=== PATIENT | female | born 1975 | race Caucasian/White ===

== ENCOUNTER 2022-09-23 18:10 | Inpatient (IN) | payer SELFPAY ==
[~2022-09-23] VITALS: Ht 152 cm; Wt 48.8 kg
[2022-09-23] MEDS ORDERED: NS 100 ML (IVPB) BAG IV ONE (19:15)
[2022-09-23] MEDS ORDERED: HOLD METFORMIN - RECEIVED CONTRAST 20 ML VIAL IV SCH (19:15)
[2022-09-23] MEDS ORDERED: IOHEXOL 350 MG/ML 100 ML (OMNIPAQUE 350) VIAL IV ONE (19:15)
--- NOTE | 2022-09-23 19:26 | ED Cough/URI ---
General Chief Complaint: COVID19 Suspect/Confirmed Stated Complaint: FEVER Nursing Triage Note: PT TO [facility], BOYFRIEND IS SHORE MAN FOR PT, STATES BODY ACHES AND WAS SENT HERE FROM [facility], THINKS SHE HAS COVID BUT NOT SURE, WAS SENT WITH AN EKG THAT WAS DONE THERE. SS STARTED YESTERDAY. STATES THEY DID NOT GIVE HER ANY MEDICATION, TEMP 36.9 AT TRIAGE Source: patient Exam Limitations: no limitations History of Present Illness Date Seen by Provider: Sep 23, 2022 Time Seen by Provider: 19:25 Initial Comments This is a 47-year-old female who presented to the ER with complaints of generalized body aches, lower abdominal pain that radiates into her back. States that her symptoms started yesterday, she has not taken anything for pain at this time. She went to [facility] and was tested for COVID and influenza, Her boyfriend believes that her COVID test was positive but he is unsure. She reports no diagnosed medical problems, however does note that she does not go to the doctor. She is complaining of chills, generalized body aches, shortness of breath, lower abdominal pain that radiates into her back. Does not take any home medications or [id number] medications. No recent travel. Denies alcohol, tobacco, illicit drug use. Allergies and Home Medications Allergies Coded Allergies: No Known Drug Allergies (Unverified , 09/23/22) Patient Home Medication List Home Medication List Reviewed: Yes Past Liixwcd-Ksyxgz-Oxtwyu Hx Patient Social History Tobacco Use?: No Substance use?: No Alcohol Use?: No Immunizations Up To Date Second COVID19 Vaccination Hany: YES Past Medical History Surgery/Hospitalization HX: C SECTION Physical Exam Vital Signs - First Documented 09/23/22 09/23/22 18:36 21:07 Temp 36.9 Pulse 111 Resp 18 B/P (MAP) 101/64 (76) Pulse Ox 94 O2 Delivery Room Air O2 Flow Rate 10.00 Capillary Refill : Less Than 3 Seconds Height: '" Weight: lbs. oz. kg; 23.00 BMI Method: General Appearance: mild distress Eyes: Bilateral Eye Normal Inspection, Bilateral Eye PERRL, Bilateral Eye EOMI HEENT: other (smooth glossy tongue ) Neck: full range of motion, supple Respiratory: chest non-tender, no respiratory distress; No no accessory muscle use (increased effort ); other (Coarse throughout, crackles bilateral bases, worse on right ) Cardiovascular: regular rate, rhythm, no edema, no murmur Gastrointestinal: normal bowel sounds, soft, tenderness (generalized lower abdominal pain ) Extremities: normal range of motion, normal inspection Neurologic/Psychiatric: no motor/sensory deficits, alert, normal mood/affect, oriented x 3 (grossly intact ) Skin: normal color, warm/dry Focused Exam Lactate Level 09/23/22 20:05: Lactic Acid Level 1.93 Lactic Acid Level Laboratory Tests Test 09/23/22 20:05 Lactic Acid Level 1.93 MMOL/L (0.50-2.00) Progress/Results/Core Measures Suspected Sepsis SIRS Temperature: Pulse: 111 Respiratory Rate: 18 Laboratory Tests 09/23/22 19:24: White Blood Count 35.3*H Blood Pressure 101 /64 Mean: 76 09/23/22 20:05: Lactic Acid Level 1.93 Laboratory Tests 09/23/22 19:24: Creatinine 1.30, INR Comment 1.3, Platelet Count 323, Total Bilirubin 1.1H Results/Orders Lab Results Laboratory Tests Test 09/23/22 18:40 09/23/22 19:24 09/23/22 20:05 09/23/22 21:40 Range/Units Influenza Type A (RT-PCR) Not Detected Not Detecte Influenza Type B (RT-PCR) Not Detected Not Detecte SARS-CoV-2 RNA (RT-PCR) Not Detected Not Detecte White Blood Count 35.3 *H 4.3-11.0 10^3/uL Red Blood Count 4.37 3.80-5.11 10^6/uL Hemoglobin 6.6 *L 11.5-16.0 g/dL Hematocrit 26 L 35-52 % Mean Corpuscular Volume 58 L 80-99 fL Mean Corpuscular Hemoglobin 15 L 25-34 pg Mean Corpuscular Hemoglobin Concent 26 L 32-36 g/dL Red Cell Distribution Width 19.9 H 10.0-14.5 % Platelet Count 323 130-400 10^3/uL Mean Platelet Volume 9.8 9.0-12.2 fL Immature Granulocyte % (Auto) 1 % Neutrophils (%) (Auto) 91 H 42-75 % Lymphocytes (%) (Auto) 4 L 12-44 % Monocytes (%) (Auto) 4 0-12 % Eosinophils (%) (Auto) 1 0-10 % Basophils (%) (Auto) 0 0-10 % Neutrophils # (Auto) 31.9 H 1.8-7.8 10^3/uL Lymphocytes # (Auto) 1.4 1.0-4.0 10^3/uL Monocytes # (Auto) 1.4 H 0.0-1.0 10^3/uL Eosinophils # (Auto) 0.2 0.0-0.3 10^3/uL Basophils # (Auto) 0.1 0.0-0.1 10^3/uL Immature Granulocyte # (Auto) 0.3 H 0.0-0.1 10^3/uL Neutrophils % (Manual) 93 % Lymphocytes % (Manual) 2 % Monocytes % (Manual) 2 % Band Neutrophils 3 % Percent Immature Platelet Fraction 3.0 0.0-7.6 % Hypochromasia MARKED Poikilocytosis SLIGHT Microcytosis MODERATE Elliptocytes SLIGHT Erythrocyte Sedimentation Rate 78 H 0-20 MM/HR Absolute Reticulocyte Count 52 24-90 10e9/uL Percent Reticulocyte Count 1.20 0.50-2.40 % Prothrombin Time 17.0 H 12.2-14.7 SEC INR Comment 1.3 0.8-1.4 Activated Partial Thromboplast Time 37 H 24-35 SEC D-Dimer 0.36 0.00-0.49 UG/ML Sodium Level 132 L 135-145 MMOL/L Potassium Level 3.8 3.6-5.0 MMOL/L Chloride Level 101 98-107 MMOL/L Carbon Dioxide Level 20 L 21-32 MMOL/L Anion Gap 11 5-14 MMOL/L Blood Urea Nitrogen 19 H 7-18 MG/DL Creatinine 1.30 0.60-1.30 MG/DL Estimat Glomerular Filtration Rate 51 BUN/Creatinine Ratio 15 Glucose Level 347 H 70-105 MG/DL Calcium Level 9.3 8.5-10.1 MG/DL Corrected Calcium 9.3 8.5-10.1 MG/DL Total Bilirubin 1.1 H 0.1-1.0 MG/DL Aspartate Amino Transf (AST/SGOT) 23 5-34 U/L Alanine Aminotransferase (ALT/SGPT) 23 0-55 U/L Alkaline Phosphatase 134 40-136 U/L Lactate Dehydrogenase 192 125-220 U/L Troponin I < 0.028 <0.028 NG/ML Total Protein 8.4 H 6.4-8.2 GM/DL Albumin 4.0 3.2-4.5 GM/DL Beta-Hydroxybutyrate (Chem panel) 0.41 H 0.00-0.27 MMOL/L Procalcitonin 3.70 H <0.10 NG/ML Lactic Acid Level 1.93 0.50-2.00 MMOL/L Blood Gas Puncture Site RRAD Blood Gas Patient Temperature 36.6 Arterial Blood pH 7.37 7.37-7.43 Arterial Blood Partial Pressure CO2 29 L 35-45 MMHG Arterial Blood Partial Pressure O2 48 L 79-93 MMHG Arterial Blood HCO3 16 *L 23-27 MMOL/L Arterial Blood Total CO2 16.9 L 21.0-31.0 MMOL/L Arterial Blood Oxygen Saturation 87 L 94-100 % Arterial Blood Base Excess -8.4 L -2.5-2.5 MMOL/L Ted Test YES-POS Blood Gas Ventilator Setting NO Blood Gas Inspired Oxygen RA My Orders Orders - ROSEMARIE AHN APRN Ed Iv/Invasive Line Start (09/23/22 19:07) Cbc With Automated Diff (09/23/22 19:07) Comprehensive Metabolic Panel (09/23/22 19:07) Erythrocyte Sedimentation Rate (09/23/22 19:07) Chest 1 View, Ap/Pa Only (09/23/22 19:07) Urine Bedside (09/23/22 19:07) Ct Abdomen/Pelvis W (09/23/22 19:07) Iohexol Injection (Omnipaque 350 Mg/Ml 1 (09/23/22 19:15) Received Contrast (Hold Metformin- Contr (09/23/22 19:15) Ns (Ivpb) (Sodium Chloride 0.9% Ivpb Bag (09/23/22 19:15) Ns Iv 500 Ml (Sodium Chloride 0.9%) (09/23/22 19:45) Ketorolac Injection (Toradol Injection) (09/23/22 19:45) Fentanyl Inj (Sublimaze Injection) (09/23/22 19:45) Ns Iv 500 Ml (Sodium Chloride 0.9%) (09/23/22 19:31) Blood Culture (09/23/22 19:45) Urinalysis (09/23/22 19:45) Urine Culture (09/23/22 19:45) Protime With Inr (09/23/22 19:45) Partial Thromboplastin Time (09/23/22 19:45) Ekg Tracing (09/23/22 19:45) Troponin I Jose (09/23/22 19:45) Lactic Acid Analyzer (09/23/22 19:45) Ns Iv 1000 Ml (Sodium Chloride 0.9%) (09/23/22 19:45) Cefepime Injection (Maxipime Injection) (09/23/22 19:45) Type And Screen (09/23/22 19:53) Red Cells Leukocytes Reduced (09/23/22 19:53) Hemoglobin A1c (09/23/22 20:34) Procalcitonin (Pct) (09/23/22 20:34) Fibrin Degradation Products (09/23/22 20:59) Arterial Blood Gas (09/23/22 20:59) LDH (09/23/22 21:01) Smear For Path Review (09/23/22 19:24) Ed Admission (Communication) (09/23/22 22:16) Medications Given in ED Current Medications Medications Dose Ordered Sig/Yue Route Start Time Stop Time Status Last Admin Dose Admin Cefepime HCl 1000 mg/Sodium Chloride 50 ml @ 100 mls/hr ONCE ONCE IV 09/23/22 19:45 09/23/22 20:14 DC 09/23/22 20:15 100 MLS/HR Fentanyl Citrate 50 mcg ONCE ONCE IVP 09/23/22 19:45 09/23/22 19:46 DC 09/23/22 19:40 50 MCG Iohexol 100 ml ONCE ONCE IV 09/23/22 19:15 09/23/22 19:16 DC 09/23/22 20:20 59 ML Ketorolac Tromethamine 15 mg ONCE ONCE IVP 09/23/22 19:45 09/23/22 19:46 DC 09/23/22 19:42 15 MG Sodium Chloride 100 ml ONCE ONCE IV 09/23/22 19:15 09/23/22 19:16 DC 09/23/22 20:20 80 ML Sodium Chloride 500 ml @ 0 mls/hr Q0M ONCE IV 09/23/22 19:45 09/23/22 19:46 DC 09/23/22 19:36 500 MLS/HR Sodium Chloride 1,644 ml @ 1,644 mls/hr ONCE ONCE IV 09/23/22 19:45 09/23/22 20:44 DC 09/23/22 20:12 1,644 MLS/HR Vital Signs/I&O 09/23/22 09/23/22 09/23/22 18:36 21:07 21:30 Temp 36.9 Pulse 111 108 106 Resp 18 24 24 B/P (MAP) 101/64 (76) 106/60 (75) 108/64 Pulse Ox 94 99 96 O2 Delivery Room Air OxyMask OxyMask O2 Flow Rate 10.00 6.00 09/24/22 00:00 Intake Total 2194 ml Balance 2194 ml Capillary Refill : Less Than 3 Seconds Blood Pressure Mean: 76 Progress Note : Progress Note Attempted to contact Dr. Gambino with oncology three times. Unable to contact Dr.Garner alcon updated. Will plan for oncology/hematology to consult. Reviewed case with icu, no new orders received. ECG Initial ECG Impression Date: Sep 23, 2022 Initial ECG Impression Time: 20:22 Initial ECG Rate: 117 Initial ECG Rhythm: S.Tach Initial ECG Intervals: Normal Initial ECG Impression: Nonspecific Changes Initial ECG Comparisson: No Previous ECG Available Diagnostic Imaging Diagonstic Imaging: Xray Comments [facility], [place] NAME: ERIK DAY [facility] REC#: [id number] PT STATUS: REG ER : 1975 PHYSICIAN: ROSEMARIE AHN CATALOG LIBRARIAN ADMIT DATE: 09/23/22/ER Signed Date of Exam:09/23/22 CT ABDOMEN/PELVIS W PROCEDURE: CT abdomen and pelvis with contrast. TECHNIQUE: Multiple contiguous axial images were obtained through the abdomen and pelvis after administration of intravenous contrast. Auto Exposure Controls were utilized during the CT exam to meet ALARA standards for radiation dose reduction. All CT scans use one or more of the following dose optimizing techniques: automated exposure control, MA and/or KvP adjustment based on patient size and exam type or iterative reconstruction. INDICATION: Abdominal pain and fever. FINDINGS: Coarse patchy groundglass and airspace densities are seen in the lung bases, most pronounced in the right lower lobe. Air bronchograms are also present in the right lower lobe consolidation. Below the diaphragm, the liver, gallbladder, pancreas, adrenal glands and spleen are unremarkable. There is also no renal lesion detected. No free fluid is seen within the abdomen or pelvis and there is no evidence of pathologically enlarged adenopathy. Urinary bladder is distended but otherwise unremarkable. Moderate amount of stool seen within the distal colon and rectum. IMPRESSION: Basilar pulmonary infiltrates are most pronounced in the right lower lobe and likely represent pneumonia. Aspiration could contribute. Otherwise, no acute abnormality is seen within the abdomen or pelvis although there is distention of the urinary bladder and moderate amount of colonic and rectal stool. Dictated by: Dictated on workstation # [id number] Dict: 09/23/222034 Trans: 09/23/222144 PJE [id number] Interpreted by: KATHY CARLIN MD Electronically signed by: KATHY CARLIN MD 09/23/222144 Diagonstic Imaging: CT Comments [facility], [place] NAME: ERIK DAY [facility] REC#: [id number] PT STATUS: REG ER : 1975 PHYSICIAN: ROSEMARIE AHN CATALOG LIBRARIAN ADMIT DATE: 09/23/22/ER Signed Date of Exam:09/23/22 CHEST 1 VIEW, AP/PA ONLY INDICATION: Chest discomfort. FINDINGS: Heart size and pulmonary vascularity are within normal limits. Coarse interstitial and groundglass densities are seen in both lungs with a predominantly perihilar distribution. There is greater density likely representing consolidation in the right lower lobe. No pleural fluid is seen. IMPRESSION: Probable patchy bilateral edema and/or pneumonitis with focal consolidating pneumonia in the right lower lobe. Dictated by: Dictated on workstation # [id number] Dict: 09/23/222043 Trans: 09/23/222143 PJE [id number] Interpreted by: KATHY CARLIN MD Electronically signed by: KATHY CARLIN MD 09/23/222143 Departure Impression Primary Impression: Community acquired bilateral lower lobe pneumonia ROSEMRAIE AHN CATALOG LIBRARIAN Sep 23, 2022 19:26
[2022-09-23] MEDS ORDERED: NS IV 500 ML 500 ML ONE (19:31)
[2022-09-23 19:37] LABS: BASOPHILS % (AUTO) 0 % (0-10); LYMPHOCYTES # (AUTO) 1.4 10^3/uL (1.0-4.0); LYMPHOCYTES % (AUTO) 4 % (12-44); MEAN CORPUSCULAR HEMOGLOBIN 15 pg (25-34); MEAN CORPUSCULAR HGB CONC 26 g/dL (32-36)
[2022-09-23 19:39] LABS: BASOPHILS # (AUTO) 0.1 10^3/uL (0.0-0.1); EOSINOPHILS # (AUTO) 0.2 10^3/uL (0.0-0.3); EOSINOPHILS % (AUTO) 1 % (0-10); MEAN CORPUSCULAR VOLUME 58 fL (80-99); MONOCYTES % (AUTO) 4 % (0-12)
[2022-09-23] MEDS ORDERED: NS IV ONE (19:45)
[2022-09-23] MEDS ORDERED: CEFEPIME INJECTION 1,000 MG in NS (IVPB) 50 ML IV ONE (19:45)
[2022-09-23] MEDS ORDERED: NS IV 500 ML 500 ML IV ONE (19:45)
[2022-09-23] MEDS ORDERED: KETOROLAC 30 MG/ML VIAL IVP ONE (19:45)
[2022-09-23] MEDS ORDERED: fentaNYL INJ 100 MCG/2 ML AMP IVP ONE (19:45)
[2022-09-23 19:46] LABS: POTASSIUM 3.8 MMOL/L (3.6-5.0)
[2022-09-23 19:47] LABS: CALCIUM 9.3 MG/DL (8.5-10.1)
[2022-09-23 19:48] LABS: TOTAL PROTEIN 8.4 GM/DL (6.4-8.2)
[2022-09-23 19:50] LABS: BILIRUBIN,TOTAL 1.1 MG/DL (0.1-1.0)
[2022-09-23 19:52] LABS: CREATININE SERUM 1.3 MG/DL (0.60-1.30)
[2022-09-23 20:12] LABS: BAND NEUTROPHILS 3 %; HYPOCHROMASIA MARKED; LYMPHOCYTES % (MANUAL) 2 %; MICROCYTOSIS MODERATE; MONOCYTES % (MANUAL) 2 %; NEUTROPHILS % (MANUAL) 93 %; POIKILOCYTOSIS SLIGHT
[2022-09-23 20:13] LABS: ELLIPT/OVALOCYTES SLIGHT; ERYTHROCYTE SEDIMENTATION RATE 78 MM/HR (0-20)
[2022-09-23 20:29] LABS: INR 1.3 (0.8-1.4)
--- NOTE | 2022-09-23 20:42 | Diagnostic Imaging Report ---
PROCEDURE: CT abdomen and pelvis with contrast. TECHNIQUE: Multiple contiguous axial images were obtained through the abdomen and pelvis after administration of intravenous contrast. Auto Exposure Controls were utilized during the CT exam to meet ALARA standards for radiation dose reduction. All CT scans use one or more of the following dose optimizing techniques: automated exposure control, MA and/or KvP adjustment based on patient size and exam type or iterative reconstruction. INDICATION: Abdominal pain and fever. FINDINGS: Coarse patchy groundglass and airspace densities are seen in the lung bases, most pronounced in the right lower lobe. Air bronchograms are also present in the right lower lobe consolidation. Below the diaphragm, the liver, gallbladder, pancreas, adrenal glands and spleen are unremarkable. There is also no renal lesion detected. No free fluid is seen within the abdomen or pelvis and there is no evidence of pathologically enlarged adenopathy. Urinary bladder is distended but otherwise unremarkable. Moderate amount of stool seen within the distal colon and rectum. IMPRESSION: Basilar pulmonary infiltrates are most pronounced in the right lower lobe and likely represent pneumonia. Aspiration could contribute. Otherwise, no acute abnormality is seen within the abdomen or pelvis although there is distention of the urinary bladder and moderate amount of colonic and rectal stool. Dictated by: Dictated on workstation # [id number]
--- NOTE | 2022-09-23 20:51 | Diagnostic Imaging Report ---
INDICATION: Chest discomfort. FINDINGS: Heart size and pulmonary vascularity are within normal limits. Coarse interstitial and groundglass densities are seen in both lungs with a predominantly perihilar distribution. There is greater density likely representing consolidation in the right lower lobe. No pleural fluid is seen. IMPRESSION: Probable patchy bilateral edema and/or pneumonitis with focal consolidating pneumonia in the right lower lobe. Dictated by: Dictated on workstation # [id number]
[2022-09-23 21:21] LABS: ABSOLUTE RETIC # 52 10e9/uL (24-90)
[2022-09-23 21:24] LABS: HEMATOCRIT 26 % (35-52); HEMOGLOBIN 6.6 g/dL (11.5-16.0); MEAN PLATELET VOLUME 9.8 fL (9.0-12.2); MONOCYTES # (AUTO) 1.4 10^3/uL (0.0-1.0); NEUTROPHILS # (AUTO) 31.9 10^3/uL (1.8-7.8); NEUTROPHILS % (AUTO) 91 % (42-75); PLATELET COUNT 323 10^3/uL (130-400); WHITE BLOOD COUNT 35.3 10^3/uL (4.3-11.0)
[2022-09-23 21:46] LABS: ABG BASE EXCESS -8.4 MMOL/L (-2.5-2.5); ABG OXYGEN SATURATION 87 % (94-100); ABG PCO2 29 MMHG (35-45); ABG PH 7.37 (7.37-7.43); ABG PO2 48 MMHG (79-93); ABG TCO2 16.9 MMOL/L (21.0-31.0)
[2022-09-23 21:47] LABS: ALLENS TEST YES-POS; INSPIRED O2 RA; PATIENT TEMP 36.6; VENTILATOR NO
[2022-09-23] MEDS ORDERED: HYDROmorphone 2 MG/ML VIAL (DILAUDID) IV PRN (23:00)
[2022-09-23] MEDS ORDERED: ALPRAZolam 0.5 MG (XANAX) TAB PO PRN (23:00)
[2022-09-23] MEDS ORDERED: BISACODYL 10 MG SUPP (DULCOLAX) PR PRN (23:00)
[2022-09-23] MEDS ORDERED: MILK OF MAGNESIA 400 MG/5 ML 30 ML UDC PO PRN (23:00)
[2022-09-23] MEDS ORDERED: ONDANSETRON 4 MG/2 ML (SDV) Z0FRAN IV PRN (23:00)
[2022-09-23] MEDS ORDERED: ACETAMINOPHEN 325 MG TABLET PO PRN (23:00)
[2022-09-23] MEDS ORDERED: polyethylene glycoL POWDER 17 GM (MIRALAX) PACK PO PRN (23:00)
[2022-09-23] MEDS ORDERED: CALCIUM CARBONATE 500 MG (TUMS) TAB.CHEW PO PRN (23:00)
[2022-09-23] MEDS ORDERED: NS IV 500 ML 500 ML IV PRN (23:00)
[2022-09-23] MEDS ORDERED: ONDANSETRON 4 MG (ZOFRAN) ORAL DISSOLVE TAB PO PRN (23:00)
[2022-09-23] MEDS ORDERED: MELATONIN 3 MG TABLET PO PRN (23:00)
[2022-09-23] MEDS ORDERED: ANTACID SUSP 30 ML UDC (MYLANTA) PO PRN (23:00)
[2022-09-23] MEDS ORDERED: diphenhydrAMINE 25 MG TAB (BENADRYL) PO PRN (23:00)
[2022-09-23] MEDS ORDERED: LACTULOSE SYRUP 10GM/15ML (ENULOSE) 30ML UDC PO PRN (23:00)
[2022-09-23] MEDS ORDERED: diphenhydrAMINE 50 MG/ML INJ (BENADRYL) IVP PRN (23:00)
[2022-09-23] MEDS: DOXYCYCLINE INJECTION 100 MG in NS (IVPB) 100 ML IV SCH (23:42)
[2022-09-23] MEDS: NS IV 1000 ML 1,000 ML IV SCH (23:42)
[2022-09-23] MEDS: ENOXAPARIN 40 MG/0.4 ML (LOVENOX) SYR SC SCH (23:43)
[2022-09-23 23:54] VITALS: BP 101/64
[2022-09-24] MEDS ORDERED: RT-ALBUTEROL HFA 8.5 GM INHALER IH PRN (00:15)
[2022-09-24] MEDS ORDERED: RT-ALBUTEROL SULF 2.5 MG/3 ML PRE-MIX VIAL INH PRN (00:30)
[2022-09-24 00:35] VITALS: BP 97/52
[2022-09-24 00:50] VITALS: BP 109/56
[2022-09-24] MEDS: NOREPINEPHRINE 8 MG/250 ML 250 ML IV SCH ×2 (00:53→23:07)
[2022-09-24 03:13] VITALS: BP 89/55
[2022-09-24] MEDS ORDERED: CEFEPIME INJECTION 1,000 MG in NS (IVPB) 50 ML IV SCH (04:00)
[2022-09-24 05:35] LABS: BASOPHILS # (AUTO) 0.1 10^3/uL (0.0-0.1); BASOPHILS % (AUTO) 0 % (0-10)
[2022-09-24 05:37] LABS: EOSINOPHILS # (AUTO) 0.3 10^3/uL (0.0-0.3); EOSINOPHILS % (AUTO) 1 % (0-10); HEMATOCRIT 25 % (35-52); LYMPHOCYTES # (AUTO) 1.2 10^3/uL (1.0-4.0); LYMPHOCYTES % (AUTO) 5 % (12-44); MEAN CORPUSCULAR HEMOGLOBIN 17 pg (25-34); MEAN CORPUSCULAR HGB CONC 27 g/dL (32-36); MEAN CORPUSCULAR VOLUME 64 fL (80-99); MEAN PLATELET VOLUME 9.4 fL (9.0-12.2); MONOCYTES % (AUTO) 4 % (0-12); NEUTROPHILS # (AUTO) 22.1 10^3/uL (1.8-7.8); NEUTROPHILS % (AUTO) 88 % (42-75); PLATELET COUNT 234 10^3/uL (130-400)
[2022-09-24 05:49] LABS: ALBUMIN 2.8 GM/DL (3.2-4.5); POTASSIUM 3.5 MMOL/L (3.6-5.0)
[2022-09-24 05:51] LABS: CALCIUM 7.7 MG/DL (8.5-10.1)
[2022-09-24 05:52] LABS: TOTAL PROTEIN 6.2 GM/DL (6.4-8.2)
[2022-09-24 05:54] LABS: BILIRUBIN,TOTAL 1.4 MG/DL (0.1-1.0)
[2022-09-24 05:55] LABS: HEMOGLOBIN 6.7 g/dL (11.5-16.0); PHOSPHORUS 1.7 MG/DL (2.3-4.7)
[2022-09-24 05:56] LABS: CREATININE SERUM 0.97 MG/DL (0.60-1.30)
[2022-09-24 05:58] LABS: MAGNESIUM 1.4 MG/DL (1.6-2.4)
[2022-09-24] MEDS: KCL 20 MEQ TAB (K-DUR) PO SCH (06:02)
[2022-09-24] MEDS: POTASSIUM CL 10MEQ/50ML IVPB 50 ML IV SCH (06:02)
[2022-09-24] MEDS: MAGNESIUM 1 GM/100 ML IVPB 100 ML IV SCH ×3 (06:02→07:56)
[2022-09-24] MEDS: inSUlin ASPART (NovoLOG) 1 UNIT/0.01 ML (CHARGE PER UNIT) SC SCH ×4 (06:24→21:22)
[2022-09-24 06:27] VITALS: BP 101/63
[2022-09-24 06:51] VITALS: BP 117/61
[2022-09-24 06:53] LABS: BILIRUBIN,URINE NEGATIVE (NEGATIVE); CLARITY,URINE CLEAR; COLOR,URINE YELLOW; GLUCOSE, URINE (UA) 3+ (NEGATIVE); KETONES,URINE TRACE (NEGATIVE); LEUKOCYTE ESTERASE ,URINE TRACE (NEGATIVE); NITRITE,URINE NEGATIVE (NEGATIVE); PROTEIN,URINE TRACE (NEGATIVE)
[2022-09-24 07:08] LABS: BACTERIA,URINE FEW /HPF; RBC,URINE 50-100 /HPF
[2022-09-24] MEDS: NS IV 1000 ML 1,000 ML IV SCH ×3 (07:56→20:59)
[2022-09-24] MEDS ORDERED: RT-ALBUTEROL HFA 8.5 GM INHALER IH SCH (08:00)
[2022-09-24] MEDS: SENNOSIDES 8.6 MG (SENOKOT) TAB PO SCH ×2 (08:08→21:22)
[2022-09-24] MEDS: DOCUSATE SODIUM 100 MG (COLACE) CAP PO SCH ×2 (08:08→21:22)
--- NOTE | 2022-09-24 08:59 | Diagnostic Imaging Report ---
INDICATION: Pneumonia Frontal chest obtained at 0520 a.m. compared to yesterday. Heart is normal in size. Patchy bibasilar infiltrates remain present, right basilar infiltrate appears to be mildly worsened compared to the prior study. There is no pneumothorax or pleural fluid. IMPRESSION: Bilateral basal infiltrates are again noted with mild worsening in right basilar infiltrate compared to the prior study. No pneumothorax or pleural fluid. Dictated by: Dictated on workstation # [id number]
[2022-09-24] MEDS ORDERED: KCL 20 MEQ TAB (K-DUR) PO ONE (09:00)
--- NOTE | 2022-09-24 09:05 | Tele-ICU Consult ---
History of Present Illness History of Present Illness Date Seen by Provider: Sep 24, 2022 Time Seen by Provider: 09:04 Date of Admission (Tele-ICU Physician , consultation as per request of PCP Service provided via interactive audio and video telecommunications E-CARE system to a patient admitted to ICU bed in [facility]. Available chart/ vitals / labs / Images reviewed H&P is from ER notes Patient's information available about PMH, Shx, Fhx allergy reviewed inEMR. ROS as per chart and RN report Now in ICU, hemodynamically stable Video assessment done using teleICU camera, rest of exam as per RN Discussed with RN. Consultants: Hospital course: (09/23) 47yr F admitted for Sepsis Pneumonia, Anemia (HGB 6.6) 2u PRBC given. A/P PNA, RLL ( NEG covid, neg flu ) - started on ABX - cefepime , doxy ( covered for mycolasma given presence anemia Anemia - CT abd pelvis done - HGB 6.6 09/24 - 2u PRBC given to follow ( less likely hemolytic with nl ldh/almost nl bili ) Hypotension - improved with IVF and blood product - follow Hypoxia - mild , on 2 l Hyperglycemia -ISS Lines : periph , (Central Line Necessity Reviewed) Dukes: cassandra OG: Nutrition: po Analgesia: Anxiety/ delirium VTE Prophylaxis: viji - WILL HOLD IF ACTIVE BLEED Stress Ulcer Prophylaxis: Plans in collaboration with bedside consultants and IM MDs. Discussed with RN to reach out if any questions or concerns A total of 32 minutes of critical care time was devoted to this patient today, required to treat and/or prevent further deterioration of critical care condition ( as above ) . I am remotely monitoring this patient from another state. I am unable to do the bedside exam, and history/physical and pertinent information is taken from other notes in the computer and bedside staff. . Allergies and Home Medications Allergies Coded Allergies: No Known Drug Allergies (Unverified , 09/23/22) Past Medical/Social/Family Hx Patient Social History Tobacco Use?: No Substance use?: No Alcohol Use?: No Immunizations Up To Date Influenza Vaccine Up-to-Date: Yes; Up-to-Date Second COVID19 Vaccination Hany: YES Current Status Communicates: Verbally Primary Language: Togolese Preferred Spoken Language: Togolese Implanted or Applied Medical D: None Review of Systems Constitutional: see HPI Focused Exam Lactate Level 09/23/22 20:05: Lactic Acid Level 1.93 Height, Weight, BMI Height: '" Weight: lbs. oz. kg; 21.16 BMI Method: Exam Exam Patient acknowledged, consented, and participated in this virtual visit which was conducted using real time audio/video Vital Signs Date Time Temp Pulse Resp B/P (MAP) Pulse Ox O2 Delivery O2 Flow Rate FiO2 09/24/22 08:16 99 Nasal Cannula 2.00 09/24/22 08:00 37.5 09/24/22 08:00 85 30 104/80 (88) 98 Nasal Cannula 2.00 09/24/22 07:48 87 09/24/22 07:43 98 Nasal Cannula 2.00 09/24/22 07:00 95 25 101/60 (74) 100 Nasal Cannula 2.00 09/24/22 06:51 37.1 92 13 117/61 100 09/24/22 06:27 37.8 94 20 101/63 97 Nasal Cannula 2.00 09/24/22 06:00 88 18 102/59 (73) 100 Nasal Cannula 2.00 09/24/22 05:00 89 19 90/57 (68) 99 Nasal Cannula 2.00 09/24/22 04:00 92 19 95/57 (70) 97 Nasal Cannula 2.00 09/24/22 04:00 98 Nasal Cannula 2.00 09/24/22 04:00 37.2 09/24/22 03:18 98 Nasal Cannula 2.00 09/24/22 03:13 37.2 92 23 89/55 98 09/24/22 03:00 94 16 89/55 (66) 97 Nasal Cannula 2.00 09/24/22 02:00 99 20 90/59 (69) 97 Nasal Cannula 2.00 09/24/22 01:00 96 20 109/56 (73) 100 Nasal Cannula 2.00 09/24/22 00:50 37.0 98 18 109/56 97 Nasal Cannula 2.00 09/24/22 00:50 37.0 98 18 109/56 97 Nasal Cannula 2.00 09/24/22 00:40 108 09/24/22 00:35 37.7 112 97/52 Nasal Cannula 2.00 09/23/22 23:59 97 Nasal Cannula 2.00 09/23/22 23:54 36.9 111 94 21 09/23/22 23:21 104 09/23/22 23:15 37.7 109 16 97/60 (72) 96 Nasal Cannula 2.00 09/23/22 21:30 106 24 108/64 96 OxyMask 6.00 09/23/22 21:07 108 24 106/60 (75) 99 OxyMask 10.00 09/23/22 18:36 36.9 111 18 101/64 (76) 94 Room Air I & O 09/24/22 07:00 Intake Total 2944 ml Output Total 650 ml Balance 2294 ml Height & Weight Height: '" Weight: lbs. oz. kg; 21.16 BMI Method: General Appearance: No Apparent Distress Capillary Refill: Less Than 3 Seconds Gastrointestinal: normal bowel sounds, soft, tenderness (generalized lower abdominal pain ) Results Lab Laboratory Tests 09/23/22 19:24 09/24/22 05:22 Assessment/Plan Assessment/Plan 1 LINO SALDIVAR MD Sep 24, 2022 09:05
[2022-09-24 09:17] VITALS: BP 109/73
[2022-09-24] MEDS: DOXYCYCLINE INJECTION 100 MG in NS (IVPB) 100 ML IV SCH ×2 (10:14→23:13)
[2022-09-24] MEDS: CEFEPIME INJECTION 1,000 MG in NS (IVPB) 50 ML IV SCH ×3 (10:14→20:59)
[2022-09-24 11:52] LABS: HEMOGLOBIN 9.2 g/dL (11.5-16.0)
--- NOTE | 2022-09-24 13:53 | History & Physical-Hospitalist ---
UBALDO ROMAN 09/24/22 1353: History of Present Illness HPI/Chief Complaint Catarina Gonzales is a 47y/o F who is being seen for a SOB and body aches. Pt report s that two days ago she began having chills, body aches, SOB, and abdominal pain that radiated to her back. Pt then went to [facility] to be seen and tested for COVID and influenza. Pt was instructed to go the ER from [facility]. In the ER she was found to have b/l lower lobe pneumonia and anemia. Today pt reports that it is painful to breath and that she has a cough. Complaining of nausea and she als o has vomited once. Abdominal pain is still present. Did get toradol yesterday for pain and that did help pt reports. States that she has been having dysuria and since yesterday has seen blood in her urine. Denies any bloody or dark stools. Rarely will have a menstrual period and when she does it is not heavy. Date Seen 09/24/22 Time Seen by a Provider: 09:11 Attending Physician No,Local Physician PCP Admitting Physician: Radha Zamarripa DO Attending Physician: Radha Zamarripa DO Referring Physician Date of Admission Sep 23, 2022 at 22:16 Home Medications & Allergies Home Medications Reviewed patient Home Medication Reconciliation performed by pharmacy medication reconciliations surveillance technician and/or nursing. Patients Allergies have been reviewed. Allergies Allergies Coded Allergies No Known Drug Allergies (Qxbyasgpwl02/9/22) Past Fwrayqr-Cnacru-Fxjtgj Hx Patient Social History Tobacco Use?: No Substance use?: No Alcohol Use?: No Immunizations Up To Date Second COVID19 Vaccination Hany: YES Current Status Communicates: Verbally Primary Language: Kinyarwanda Preferred Spoken Language: Kinyarwanda Implanted or Applied Medical D: None Review of Systems Constitutional: No chills, No fever EENTM: No blurred vision, No double vision Respiratory: cough, short of breath Cardiovascular: No chest pain, No palpitations Gastrointestinal: abdominal pain; No melena; nausea, vomiting Genitourinary: dysuria, hematuria Musculoskeletal: No back pain, No neck pain Psychiatric/Neurological: Denies Headache, Denies Numbness, Denies Paresthesia Physical Exam Physical Exam Vital Signs Vital Signs - First Documented 09/23/22 09/23/22 09/23/22 18:36 21:07 23:54 Temp 36.9 Pulse 111 Resp 18 B/P (MAP) 101/64 (76) Pulse Ox 94 O2 Delivery Room Air O2 Flow Rate 10.00 FiO2 21 Capillary Refill : Less Than 3 Seconds Height, Weight, BMI Height: '" Weight: lbs. oz. kg; 21.16 BMI Method: General Appearance: No Apparent Distress, WD/WN HEENT: PERRL/EOMI; No Photophobia Neck: Non Tender, Supple Respiratory: Crackles (B/L lower lung allen), Wheezing (B/L lower lung allen) Cardiovascular: Regular Rate, Rhythm, No Murmur, Normal Peripheral Pulses Gastrointestinal: No Organomegaly, Tenderness (throughout, positive Marie's sign) Back: No CVA Tenderness (L); CVA Tenderness (R) Extremity: Non Tender, No Calf Tenderness, No Pedal Edema Neurologic/Psychiatric: Alert, Oriented x3 Skin: Normal Color, Warm/Dry Results Results/Procedures Labs Laboratory Tests 09/23/22 19:24 09/24/22 05:22 09/24/22 11:41 Patient resulted labs reviewed. Assessment/Plan Admission Diagnosis CA B/L lower lobe PNA Anemia Abdominal pain Hyperglycemia Nausea/Vomiting Assessment and Plan CA B/L lower lobe PNA -On cefepime and doxycycline -WBC 25 today down from 35.6 yesterday -Continue to monitor for signs of worsening infection Anemia -Has received 2U of PRBCs -Last Hgb was 9.2 -Iron studies and B12 pending -Fecal occult blood ordered -Continue to monitor and transfuse if Hgb is below 7 Abdominal pain -Abdominal CT done yesterday was unremarkable -Positive Marie's sign on exam -Gallbladder U/S done -Surgery consulted Hyperglycemia -blood glucose of 328 this AM -HgbA1C is pending -hydroxybutyrate was elevated -SSI and Levemir ordered Nausea/Vomiting -zofran PRN DVT prophylaxis: Lovenox Code status: full code Diet: CARIEO MOIRA NEWSOME MD 09/24/221931: History of Present Illness Source: patient Exam Limitations: no limitations Time Seen by a Provider: 09:30 Past Lxqpjbt-Gvnowh-Uvowzy Hx Family Medical History No Pertinent Family Hx Results Results/Procedures Imaging: Reviewed Imaging Films, Reviewed Imaging Report Assessment/Plan Admission Diagnosis Admission Status: Inpatient Order (span 2 midnights) Reason for Inpatient Admission: IV antibiotics Assessment and Plan Admitted with sepsis due to pneumonia. Started on IV antibiotics. Also with severe microcytic anemia. Transfused 2 units PRBC, hemoglobin now improved. Iron studies, FOBT pending. Also with abdominal pain, CT and ultrasound negative. Surgery consutled. Also with new onset diabetes, insulin started. Critical Care Critically Ill Patient Diagnosis/Problems Diagnosis/Problems (1) Sepsis Status: Acute (2) Community acquired bilateral lower lobe pneumonia Status: Acute (3) Severe anemia Status: Acute (4) Microcytic anemia Status: Acute (5) Abdominal pain Status: Acute (6) New onset type 2 diabetes mellitus Status: Acute (7) UTI (urinary tract infection) Status: Acute (8) COMFORT (acute kidney injury) Status: Acute (9) Electrolyte abnormality Status: Acute Supervisory-Addendum Brief Verification & Attestation Participated in pt care: history, MDM, physical Personally performed: exam, history, MDM, supervision of care Care discussed with: Medical Student Procedures: n/a Results interpretation: Verified all documentation A medical student performed and documented this service in my presence. I reviewed and verified all information documented by the medical student and made modifications to such information, when appropriate. I personally performed the physical exam and medical decision making. UBALDO ROMAN Sep 24, 2022 13:53 MOIRA NEWSOME MD Sep 24, 2022 19:32
--- NOTE | 2022-09-24 14:29 | Diagnostic Imaging Report ---
PROCEDURE: US Gallbladder. TECHNIQUE: Multiple real-time grayscale images were obtained over the right upper quadrant in various projections. INDICATION: Right upper quadrant pain. FINDINGS: Liver is normal in size at 15.4 cm. The portal vein is patent and shows normal direction of flow. No discrete liver mass is detected. Gallbladder is without stones or sludge. There is no wall thickening or biliary ductal dilatation. Pancreas is unremarkable. Aorta is nonaneurysmal. IVC is patent. Right kidney is without calculi or hydronephrosis. There is no ascites. IMPRESSION: Unremarkable gallbladder ultrasound. Dictated by: Dictated on workstation # [id number]
--- NOTE | 2022-09-24 14:57 | Consultation - Surgery ---
History of Present Illness History of Present Illness Patient Consulted On(melissa/time) 09/24/22 14:52 Date Seen by Provider: Sep 24, 2022 Time Seen by Provider: 14:52 History of Present Illness Consult requested by Dr. Arredondo for abdominal pain Patient is a 47-year-old female who was admitted to the hospital due to cough shortness of breath and has complaints nausea vomiting sleep/abdominal pain. Patient symptoms began yesterday. She went to the emergency department for further evaluation. She is found to be septic with a bilateral lower lobe pneumonia. She was placed in intensive care unit. She states that the abdominal pain is slightly worsened. She had a CT scan that was unremarkable. She also had a gallbladder ultrasound which was unremarkable. Patient did have some slight fever. Denies sweats chills or chest pain. Allergies and Home Medications Allergies Coded Allergies: No Known Drug Allergies (Unverified , 09/23/22) Patient Home Medication List Home Medication List Reviewed: Yes No Active Prescriptions or Reported Meds Past Jygwcif-Vbrxwh-Ptrovy Hx Patient Social History Smoking Status: Never a Smoker Alcohol Use?: No Have you traveled recently?: No Surgeries Surgeries: Section Respiratory History of Respiratory Disorde: No Cardiovascular History of Cardiac Disorders: No Neurological History of Neurological Disord: No Genitourinary History of Genitourinary Disor: No Gastrointestinal History of Gastrointestinal Di: No Musculoskeletal History of Musculoskeletal Dis: No Endocrine History of Endocrine Disorders: No HEENT History of HEENT Disorders: No Cancer History of Cancer: No Psychosocial History of Psychiatric Problem: No Integumentary History of Skin or Integumenta: No Reviewed Nursing Assessment Reviewed/Agree w Nursing PMH: Yes Family Medical History Significant Family History: No Pertinent Family Hx Review of Systems-General Constitutional: No chills; fever EENTM: No blurred vision, No double vision Respiratory: cough, short of breath Gastrointestinal: abdominal pain, nausea, vomiting Genitourinary: No decreased output, No discharge Musculoskeletal: No back pain, No joint pain Skin: No change in color, No change in hair/nails Psychiatric/Neurological: Denies Anxiety, Denies Depressed, Denies Emotional Problems All Other Systems Reviewed Negative Unless Noted: Yes (Negative excepted noted.) Physical Exam-General Problems Physical Exam Vital Signs Vital Signs - First Documented 09/23/22 09/23/22 09/23/22 18:36 21:07 23:54 Temp 36.9 Pulse 111 Resp 18 B/P (MAP) 101/64 (76) Pulse Ox 94 O2 Delivery Room Air O2 Flow Rate 10.00 FiO2 21 Capillary Refill : Less Than 3 Seconds General Appearance: WD/WN, no apparent distress HEENT: PERRL/EOMI Neck: non-tender, full range of motion Respiratory: chest non-tender, no respiratory distress, no accessory muscle use Cardiovascular: regular rate, rhythm, no JVD Gastrointestinal: non tender, soft, tenderness (Suprapubic) Rectal: deferred Back: no CVA tenderness, no vertebral tenderness Extremities: non-tender, no pedal edema, no calf tenderness Neurologic/Psychiatric: alert, normal mood/affect, oriented x 3 Skin: normal color, warm/dry Lymphatic: no adenopathy Data Review Labs Laboratory Tests 09/23/22 18:40: Influenza Type A (RT-PCR) Not Detected, Influenza Type B (RT-PCR) Not Detected, SARS-CoV-2 RNA (RT-PCR) Not Detected 09/23/22 19:24: White Blood Count 35.3*H, Red Blood Count 4.37, Hemoglobin 6.6*L, Hematocrit 26L , Mean Corpuscular Volume 58L, Mean Corpuscular Hemoglobin 15L, Mean Corpuscular Hemoglobin Concent 26L, Red Cell Distribution Width 19.9H, Platelet Count 323, Mean Platelet Volume 9.8, Immature Granulocyte % (Auto) 1, Neutrophils (%) (Auto) 91H, Lymphocytes (%) (Auto) 4L, Monocytes (%) (Auto) 4, Eosinophils (%) (Auto) 1, Basophils (%) (Auto) 0, Neutrophils # (Auto) 31.9H, Lymphocytes # (Auto) 1.4, Monocytes # (Auto) 1.4H, Eosinophils # (Auto) 0.2, Basophils # (Auto) 0.1, Immature Granulocyte # (Auto) 0.3H, Neutrophils % (Manual) 93, Lymphocytes % (Manual) 2, Monocytes % (Manual) 2, Band Neutrophils 3, Percent Immature Platelet Fraction 3.0, Hypochromasia MARKED, Poikilocytosis SLIGHT, Microcytosis MODERATE, Elliptocytes SLIGHT, Erythrocyte Sedimentation Rate 78H, Absolute Reticulocyte Count 52, Percent Reticulocyte Count 1.20, Prothrombin Time 17.0H, INR Comment 1.3, Activated Partial Thromboplast Time 37H, D-Dimer 0.36, Sodium Level 132L, Potassium Level 3.8, Chloride Level 101, Carbon Dioxide Level 20L, Anion Gap 11, Blood Urea Nitrogen 19H, Creatinine 1.30, Estimat Glomerular Filtration Rate 51, BUN/Creatinine Ratio 15, Glucose Level 347H, Calcium Level 9.3, Corrected Calcium 9.3, Total Bilirubin 1.1H, Aspartate Amino Transf (AST/SGOT) 23, Alanine Aminotransferase (ALT/SGPT) 23, Alkaline Phosphatase 134, Lactate Dehydrogenase 192, Troponin I < 0.028, Total Protein 8.4H, Albumin 4.0, Beta-Hydroxybutyrate (Chem panel) 0.41H, Procalcitonin 3.70H 09/23/22 20:05: Lactic Acid Level 1.93 09/23/22 21:40: Blood Gas Puncture Site RRAD, Blood Gas Patient Temperature 36.6, Arterial Blood pH 7.37, Arterial Blood Partial Pressure CO2 29L, Arterial Blood Partial Pressure O2 48L, Arterial Blood HCO3 16*L, Arterial Blood Total CO2 16.9L, Arterial Blood Oxygen Saturation 87L, Arterial Blood Base Excess -8.4L, Ted Test YES-POS, Blood Gas Ventilator Setting NO, Blood Gas Inspired Oxygen RA 09/23/22 23:00: 09/24/22 01:20: 09/24/22 05:22: White Blood Count 25.0H, Red Blood Count 3.85, Hemoglobin 6.7*L, Hematocrit 25L, Mean Corpuscular Volume 64L, Mean Corpuscular Hemoglobin 17L, Mean Corpuscular Hemoglobin Concent 27L, Red Cell Distribution Width 25.8H, Platelet Count 234, Mean Platelet Volume 9.4, Immature Granulocyte % (Auto) 2, Neutrophils (%) (Auto) 88H, Lymphocytes (%) (Auto) 5L, Monocytes (%) (Auto) 4, Eosinophils (%) (Auto) 1, Basophils (%) (Auto) 0, Neutrophils # (Auto) 22.1H, Lymphocytes # (Auto) 1.2, Monocytes # (Auto) 1.0, Eosinophils # (Auto) 0.3, Basophils # (Auto) 0.1, Immature Granulocyte # (Auto) 0.4H, Percent Immature Platelet Fraction 2.4, Sodium Level 134L, Potassium Level 3.5L, Chloride Level 110H, Carbon Dioxide Lev el 15L, Anion Gap 9, Blood Urea Nitrogen 13, Creatinine 0.97, Estimat Glomerular Filtration Rate 72, BUN/Creatinine Ratio 13, Glucose Level 328H, Calcium Level 7.7L, Corrected Calcium 8.7, Phosphorus Level 1.7L, Magnesium Level 1.4L, Total Bilirubin 1.4H, Aspartate Amino Transf (AST/SGOT) 24, Alanine Aminotransferase (ALT/SGPT) 22, Alkaline Phosphatase 106, Total Protein 6.2L, Albumin 2.8L 09/24/22 10:28: Glucometer 182H 09/24/22 11:41: Hemoglobin 9.2#L, Hematocrit 32L Assessment/Plan Assessment/Plan Assessment/Plan Sepsis Bilateral pneumonia lower lobes Abdominal painsuprapubic Anemia Patient in the intensive care unit she is receiving IV fluids and antibiotics. We will continue. Patient with abdominal pain CT scan abdomen pelvis was negative along with ultrasound of the gallbladder which was negative. Did not find any source of her abdominal pain at this time. Anemia transfused 2 units, follow hgb transfuse as needed. Repeat labs in the a.m. Await urine culture. JERE FREEDMAN DO Sep 24, 2022 14:57
[2022-09-24] MEDS: ENOXAPARIN 40 MG/0.4 ML (LOVENOX) SYR SC SCH (20:58)
[2022-09-25] MEDS: CEFEPIME INJECTION 1,000 MG in NS (IVPB) 50 ML IV SCH ×2 (04:16→10:06)
[2022-09-25 05:10] LABS: BASOPHILS % (AUTO) 0 % (0-10); EOSINOPHILS # (AUTO) 0.7 10^3/uL (0.0-0.3); EOSINOPHILS % (AUTO) 5 % (0-10); HEMATOCRIT 29 % (35-52); HEMOGLOBIN 8.1 g/dL (11.5-16.0); LYMPHOCYTES # (AUTO) 1.2 10^3/uL (1.0-4.0); LYMPHOCYTES % (AUTO) 8 % (12-44); MEAN CORPUSCULAR HEMOGLOBIN 19 pg (25-34); MEAN CORPUSCULAR HGB CONC 28 g/dL (32-36); MEAN CORPUSCULAR VOLUME 67 fL (80-99); MEAN PLATELET VOLUME 9.9 fL (9.0-12.2); MONOCYTES # (AUTO) 0.7 10^3/uL (0.0-1.0); MONOCYTES % (AUTO) 5 % (0-12); NEUTROPHILS # (AUTO) 12.3 10^3/uL (1.8-7.8); NEUTROPHILS % (AUTO) 82 % (42-75); PLATELET COUNT 224 10^3/uL (130-400)
[2022-09-25 05:30] LABS: ALBUMIN 2.7 GM/DL (3.2-4.5); BILIRUBIN,TOTAL 0.8 MG/DL (0.1-1.0); CALCIUM 7.8 MG/DL (8.5-10.1); CREATININE SERUM 0.76 MG/DL (0.60-1.30); MAGNESIUM 1.7 MG/DL (1.6-2.4); PHOSPHORUS 1.6 MG/DL (2.3-4.7); POTASSIUM 3.7 MMOL/L (3.6-5.0); TOTAL PROTEIN 6.1 GM/DL (6.4-8.2)
[2022-09-25] MEDS: inSUlin ASPART (NovoLOG) 1 UNIT/0.01 ML (CHARGE PER UNIT) SC SCH ×2 (05:34→11:00)
[2022-09-25] MEDS: KCL 20 MEQ TAB (K-DUR) PO SCH (05:34)
[2022-09-25] MEDS: POTASSIUM CL 10MEQ/50ML IVPB 50 ML IV SCH (05:34)
[2022-09-25] MEDS: MAGNESIUM 1 GM/100 ML IVPB 100 ML IV SCH (05:34)
[2022-09-25] MEDS: NS IV 1000 ML 1,000 ML IV SCH (07:55)
[2022-09-25] MEDS: DOCUSATE SODIUM 100 MG (COLACE) CAP PO SCH (07:55)
[2022-09-25] MEDS: SENNOSIDES 8.6 MG (SENOKOT) TAB PO SCH (07:58)
--- NOTE | 2022-09-25 08:14 | Diagnostic Imaging Report ---
INDICATION: Pneumonia Frontal chest obtained at 0420 a.m. compared to 09/24/2022. There is cardiomegaly. There is no change in right medial basal infiltrate. There is some increasing perihilar infiltrate. There is some mild infiltrate in the left lateral base as well. There is no pneumothorax. There appears to be a small right pleural effusion Impression: No change in right medial basilar infiltrate. There is mild increase in perihilar infiltrates. There is a small right pleural effusion. There is some minimal left basilar infiltrate. Dictated by: Dictated on workstation # [id number]
--- NOTE | 2022-09-25 08:24 | Progress Note - Surgery ---
DANIEL NOLASCO 09/25/22 0824: Subjective Date Seen by a Provider: Sep 25, 2022 Time Seen by a Provider: 08:18 Subjective/Events-last exam Patient is laying bed eating and drinking She states she feels improved from yesterday Denies any abdominal pain, fever, chills, or SOB Has no other complaints at this time. Has not had a bowel movement in 3 days Labs reviewed Focused Exam Lactate Level 09/23/22 20:05: Lactic Acid Level 1.93 Objective Exam Vital Signs Date Time Temp Pulse Resp B/P (MAP) Pulse Ox O2 Delivery O2 Flow Rate FiO2 09/25/22 07:53 36.7 09/25/22 07:41 94 Nasal Cannula 1.00 09/25/22 07:00 65 16 136/78 (97) 96 Nasal Cannula 2.00 09/25/22 07:00 95 09/25/22 06:00 60 16 127/86 (100) 99 Nasal Cannula 2.00 09/25/22 05:00 66 18 130/77 (94) 98 Nasal Cannula 2.00 09/25/22 04:00 66 18 122/80 (94) 99 Nasal Cannula 2.00 09/25/22 04:00 96 Nasal Cannula 2.00 09/25/22 03:00 70 16 113/65 (81) 98 Nasal Cannula 2.00 09/25/22 02:00 68 23 128/69 (88) 99 Nasal Cannula 2.00 09/25/22 01:00 73 19 115/74 (88) 98 Nasal Cannula 2.00 09/25/22 01:00 71 09/25/22 00:58 Nasal Cannula 2.00 09/25/22 00:00 71 20 123/78 (93) 97 Room Air 09/25/22 00:00 36.6 09/24/22 23:59 96 Nasal Cannula 2.00 09/24/22 23:00 70 19 104/61 (75) 96 Room Air 09/24/22 22:00 70 35 111/67 (82) 94 Room Air 09/24/22 21:00 73 20 110/59 (76) 96 Room Air 09/24/22 20:00 36.9 09/24/22 20:00 77 16 105/63 (77) 97 Room Air 09/24/22 20:00 96 Nasal Cannula 2.00 09/24/22 19:00 70 14 107/62 (77) 97 Room Air 09/24/22 19:00 70 09/24/22 18:54 Room Air 09/24/22 18:00 71 21 109/68 (82) 95 Nasal Cannula 2.00 09/24/22 17:00 75 23 96/63 (74) 96 Nasal Cannula 2.00 09/24/22 16:20 36.8 09/24/22 16:00 88 35 92/61 (71) 97 Nasal Cannula 2.00 09/24/22 16:00 96 Nasal Cannula 2.00 09/24/22 15:00 75 16 99/60 (73) 95 Nasal Cannula 2.00 09/24/22 14:00 77 15 82/53 (63) 95 Nasal Cannula 2.00 09/24/22 13:46 80 09/24/22 13:00 87 24 96/58 (71) 100 Nasal Cannula 2.00 09/24/22 12:15 98 Nasal Cannula 2.00 09/24/22 12:00 83 19 105/60 (75) 100 Nasal Cannula 2.00 09/24/22 11:00 90 23 101/73 (82) 99 Nasal Cannula 2.00 09/24/22 10:00 91 24 103/67 (79) 99 Nasal Cannula 2.00 09/24/22 09:17 36.8 92 109/73 97 Nasal Cannula 09/24/22 09:00 86 11 107/65 (79) 99 Nasal Cannula 2.00 I & O 09/25/22 07:00 Intake Total 2030 ml Output Total 1450 ml Balance 580 ml Capillary Refill : Less Than 3 Seconds General Appearance: No Apparent Distress, WD/WN HEENT: PERRL/EOMI; No Photophobia Neck: Non Tender, Supple Respiratory: Crackles (B/L lower lung allen), Wheezing (B/L lower lung allen) Cardiovascular: Regular Rate, Rhythm, No JVD, No Murmur, Normal Peripheral Pulses Peripheral Pulses: 2+ Dorsalis Pedis (R), 2+ Left Dors-Pedis (L), 2+ Radial Pulses (R), 2+ Radial Pulses (L) Gastrointestinal: non tender, soft Extremity: Non Tender, No Calf Tenderness, No Pedal Edema Neurologic/Psychiatric: Alert, Oriented x3 Skin: Normal Color, Warm/Dry Lymphatic: No Adenopathy Results Lab Laboratory Tests 09/24/22 10:28: Glucometer 182H 09/24/22 11:41: Hemoglobin 9.2#L, Hematocrit 32L 09/24/22 17:05: Glucometer 157H 09/24/22 21:02: Glucometer 159H 09/25/22 04:27: White Blood Count 15.0H, Red Blood Count 4.34, Hemoglobin 8.1L, Hematocrit 29L, Mean Corpuscular Volume 67L, Mean Corpuscular Hemoglobin 19L, Mean Corpuscular Hemoglobin Concent 28L, Red Cell Distribution Width 26.3H, Platelet Count 224, Mean Platelet Volume 9.9, Immature Granulocyte % (Auto) 1, Neutrophils (%) (Auto) 82H, Lymphocytes (%) (Auto) 8L, Monocytes (%) (Auto) 5, Eosinophils (%) (Auto) 5, Basophils (%) (Auto) 0, Neutrophils # (Auto) 12.3H, Lymphocytes # (Auto) 1.2, Monocytes # (Auto) 0.7, Eosinophils # (Auto) 0.7H, Basophils # (Auto) 0.0, Immature Granulocyte # (Auto) 0.1, Sodium Level 137, Potassium Level 3.7, Chloride Level 115H, Carbon Dioxide Level 16L, Anion Gap 6, Blood Urea Nitrogen 7, Creatinine 0.76, Estimat Glomerular Filtration Rate 97, BUN/Creatinine Ratio 9, Glucose Level 177H, Calcium Level 7.8L, Corrected Calcium 8.8, Phosphorus Level 1.6L, Magnesium Level 1.7, Total Bilirubin 0.8, Aspartate Amino Transf (AST/SGOT) 27, Alanine Aminotransferase (ALT/SGPT) 18, Alkaline Phosphatase 129, Total Protein 6.1L, Albumin 2.7L Microbiology 09/23/22 Blood Culture - Preliminary, Resulted No growth Assessment/Plan Assessment/Plan Assessment/Plan Sepsis Bilateral lower lobe community acquired pneumonia Abdominal painsuprapubic-improved Anemia- 8.1 today from 9.2 yesterday Plan: Continue supportive care and Abx Abdominal CT negative, US of gallbladder negative Track and trend hemoglobin Monitor labs Awaiting urine culture results JERE FREEDMAN DO 09/25/22 5104: Subjective Subjective/Events-last exam Patient left AMA prior to being seen by me. Objective Exam General Appearance: Other (Patient left AMA prior to being seen by me.) Assessment/Plan Assessment/Plan Assessment/Plan Patient left AMA prior to being seen by me. Supervisory-Addendum Brief Verification & Attestation Participated in pt care: other (Patient left AMA prior to being seen by me.) Personally performed: other (Patient left AMA prior to being seen by me.) Care discussed with: other (Patient left AMA prior to being seen by me.) Procedures: other (Patient left AMA prior to being seen by me.) Patient left AMA prior to being seen by me. DANIEL NOLASCO Sep 25, 2022 08:24 JERE FREEDMAN DO Sep 25, 2022 16:03
[2022-09-25] MEDS ORDERED: MILK OF MAGNESIA 400 MG/5 ML 30 ML UDC PO NR (08:30)
[2022-09-25] MEDS ORDERED: polyethylene glycoL POWDER 17 GM (MIRALAX) PACK PO SCH (09:00)
[2022-09-25] MEDS: DOXYCYCLINE INJECTION 100 MG in NS (IVPB) 100 ML IV SCH (10:06)
--- NOTE | 2022-09-25 10:35 | Physical Therapy Evaluation ---
PT Evaluation-General Medical Diagnosis Admission Date Sep 23, 2022 at 22:16 Medical Diagnosis: Bilateral Pneumonia, body aches Onset Date: Sep 23, 2022 Therapy Diagnosis Therapy Diagnosis: None Precautions Precautions/Isolations: Standard Precautions Weight Bear Status Right Lower Extremity: Right Full Weight Bearing Left Lower Extremity: Left Full Weight Bearing Referral Physician: Maria Elena Reason for Referral: Evaluation/Treatment Medical History Additional Medical History Surgery/Hospitalization HX: C SECTION Reviewed History: Yes Prior Prior Level of Function SCALE: Activities may be completed with or without assistive devices. 1-Rmdwigrzpb-xvtkjdb completes the activity by him/herself with no assistance from a helper. 5-Set-up or Clean-up Assistance-helper sets up or cleans up; patient completes activity. [place] assists only prior to or following the activity. 4-Supervision or Touching Assistance-helper provides verbal cues and/or touching/steadying and/or contact guard assistance as patient completes activity. Assistance may be provided throughout the activity or intermittently. 3-Partial/Moderate Assistance-helper does LESS THAN HALF the effort. [place] lifts, holds or supports trunk or limbs, but provides less than half the effort. 2-Substantial/Maximal Assistance-helper does MORE THAN HALF the effort. [place] lifts or holds trunk or limbs and provides more than half the effort. 4-Skkbbatxe-qgzjdq does ALL the effort. Patient does none of the effort to complete the activity. Or, the assistance of 2 or more helpers is required for the patient to complete the activity. If activity was not attempted, code reason: 7-Patient Refused. 9-Not Applicable-not attempted and the patient did not perform the activity before the current illness, exacerbation or injury. 10-Not Attempted due to Environmental Limitations-(lack of equipment, weather restraints, etc.). 88-Not Attempted due to Medical Conditions or Safety Concerns. Bed Mobility: 6 Transfers (B,C,W/C): 6 Gait: 6 Stairs: 6 Indoor Mobility (Ambulation): Independent Stairs: Independent Prior Devices Use: None PT Evaluation-Current Subjective Patient in bed pre-tx, reports feeling like she needs to vomit, agrees to PT. Pt/Family Goals unable to obtain Objective Patient Orientation: Person, Place, Situation Attachments: Oxygen, IV ROM/Strength ROM Lower Extremities WFL Strength Lower Extremities no formal testing (4/5 grossly bilateral LE) Integumentary/Posture Bowel Incontinence: No Bladder Incontinence: No Neuromuscular (Tone, Coordination, Reflexes) Coordination intact Sensory Vision: Functional Hearing: Functional Transfers Lying to Sitting/Side of Bed(Q: 6 Sit to Stand (QC): 6 Chair/Rqx-od-Jqkub Xfer(QC): 6 Gait Does the Patient Walk?: Yes Mode of Locomotion: Walk Anticipated Mode of Locomotion: Walk Walk 10 feet (QC): 6 Walk 50 ft with 2 Turns(QC): 6 Distance: 50' Gait Assistive Device: None Comments/Gait Description Patient independent with normal gait Balance Sitting Static: Normal Sitting Dynamic: Normal Standing Static: Normal Standing Dynamic: Normal Treatment Ambulation Assessment/Needs Patient in recliner post-tx with nurse call, phone, tray, all needs met. Patient independent with all mobility and transfers. Patient to be DC from PT and notified nursing that she is independent with everything. Rehab Potential: Good PT Plan Treatment/Plan Treatment Plan: Discontinue PT Treatment Duration: Sep 25, 2022 Frequency: Patient and/or Family Agrees t: Yes Safety Risks/Education Patient Education: Correct Positioning, Safety Issues Teaching Recipient: Patient Teaching Methods: Demonstration, Discussion Response to Teaching: Verbalize Understanding Discharge Recommendations Plan Patient to be DC from PT. Therapy Discharge Recommendati: Home & Family Time Time In: 1020 Time Out: 1030 DATE: Sep 25, 2022 Total Billed Treatment Time: 10 Total Billed Treatment 1 visit EVL 10min HOANG GREGORY PT Sep 25, 2022 10:35
--- NOTE | 2022-09-25 12:13 | Progress Note - Hospitalist ---
Subjective HPI/CC On Admission Date Seen by Provider: Sep 25, 2022 Time Seen by Provider: 08:33 Catarina Gonzales is a 47y/o F who is being seen for a SOB and body aches. Pt reports that two days ago she began having chills, body aches, SOB, and abdominal pain that radiated to her back. Pt then went to [facility] yesterday to be seen and tested for COVID and influenza. Pt was instructed to go the ER from [facility]. In the ER she was found to have b/l lower lobe pneumonia and anemia. Today pt reports that it is painful to breath and that she has a cough. Complaining of nausea and she also has vomited once. Abdominal pain is still present. Did get toradol yesterday for pain and that did help pt reports. States that she has been having dysuria and since yesterday has seen blood in her urine. Denies any bloody or dark stools. Rarely will have a menstrual period and when she does it is not heavy. Subjective/Events-last exam Pt reports that she still feels SOB and has a cough but it has improved from yesterday. Abdominal pain has also improved. No longer having nausea but she did vomit once this morning. Reports that she does have an appetite. Review of Systems General: No Chills, No Other (fever) HEENT: No Head Aches, No Visual Changes Pulmonary: Dyspnea, Cough Cardiovascular: No: Chest Pain, Palpitations Gastrointestinal: Vomiting; No: Nausea, Abdominal Pain Genitourinary: No Dysuria, No Hematuria Musculoskeletal: No: neck pain, back pain Neurological: No: Weakness, Numbness Focused Exam Lactate Level 09/23/22 20:05: Lactic Acid Level 1.93 Objective Exam Vital Signs Vital Signs Date Time Temp Pulse Resp B/P (MAP) Pulse Ox O2 Delivery O2 Flow Rate FiO2 09/25/22 11:00 69 18 148/91 (110) 99 Nasal Cannula 2.00 09/25/22 07:53 36.7 09/23/22 23:54 21 Capillary Refill : Less Than 3 Seconds General Appearance: No Apparent Distress, WD/WN HEENT: PERRL/EOMI; No Photophobia Respiratory: No Accessory Muscle Use, No Respiratory Distress, Other (course breath sounds, improved from yesterday) Cardiovascular: Regular Rate, Rhythm, No Murmur, Normal Peripheral Pulses Gastrointestinal: Normal Bowel Sounds, Non Tender, Soft Extremity: Non Tender, No Calf Tenderness, No Pedal Edema Neurologic/Psychiatric: Alert, Oriented x3, Normal Mood/Affect Skin: Normal Color, Warm/Dry Results/Procedures Lab Laboratory Tests 09/25/22 04:27 Patient resulted labs reviewed. Imaging: Reviewed Imaging Films, Reviewed Imaging Report Assessment/Plan Assessment and Plan Assess & Plan/Chief Complaint Community acquired bilateral lower lobe pneumonia Sepsis (improving) -Stop cefepime and doxycycline IV and start oral doxycycline -WBC 15 today down from 25 yesterday -No longer meets SIRS criteria -Continue to monitor for signs of worsening infection Iron defiency anemia -Has received 2U of PRBCs -Last Hgb was 8.1 -Iron studies and B12 done, iron of 14 and ferritin of 5, start iron supplementation -Fecal occult blood ordered, has not had a BM -Continue to monitor and transfuse if Hgb is below 7 Abdominal pain (improving) -Abdominal CT done yesterday was unremarkable -Positive Marie's sign on exam -Gallbladder U/S negative -Surgery consulted Hyperglycemia Diabetes mellitus -blood glucose of 328 yesterday -HgbA1C of 10.6 -hydroxybutyrate was elevated -SSI and Levemir ordered -Will need to be on insulin after discharge -Can also consider starting metformin Nausea/Vomiting -zofran PRN Move to 4th floor today DVT prophylaxis: Lovenox Code status: full code Diet: diabetic diet UBALDO ROMAN Sep 25, 2022 12:13
--- NOTE | 2022-09-25 13:07 | Tele-ICU Progress Note ---
Subjective Date Seen by a Provider: Sep 25, 2022 Time Seen by a Provider: 09:37 Subjective/Events-last exam (Tele-ICU Physician , Progress Note ) Service provided via interactive audio and video telecommunications E-[facility] system to a patient admitted to ICU bed in [facility]. Available chart/ vitals / labs / Images reviewed Video assessment done using teleICU camera, rest of exam as per RN Discussed with RN Events overnight : Afebrile hemodynamically stable Respiratory - 2L I/O = pos Drips: Pressors- no Consultants: Hospital course: (09/23) 47yr F admitted for Sepsis Pneumonia, Anemia (HGB 6.6) 2u PRBC given. A/P PNA, RLL ( NEG covid, neg flu ) - started on ABX - cefepime , doxy ( covered for mycolasma given presence anemia Anemia - CT abd pelvis done - HGB 6.6 09/24 - 2u PRBC given to follow ( less likely hemolytic with nl ldh/almost nl bili ) -STABLE AFTER TRANSFRUSION Hypotension - improved with IVF and blood product - follow - resolved Hypoxia - mild , on 2 l - will stop ivf and possibly needs diuresis Hyperglycemia -ISS Lines : periph , (Central Line Necessity Reviewed) Dukes: void OG: Nutrition: po Analgesia: Anxiety/ delirium VTE Prophylaxis: viji Stress Ulcer Prophylaxis: Plans in collaboration with bedside consultants and IM MDs. Discussed with RN to reach out if any questions or concerns A total of 20 minutes of critical care time was devoted to this patient today, required to treat and/or prevent further deterioration of critical care condition ( as above ) . I am remotely monitoring this patient from another state. I am unable to do the bedside exam, and history/physical and pertinent information is taken from other notes in the computer and bedside staff. Sepsis Event Evaluation Height, Weight, BMI Height: '" Weight: lbs. oz. kg; 21.16 BMI Method: Focused Exam Lactate Level 09/23/22 20:05: Lactic Acid Level 1.93 Exam Exam Patient acknowledged, consented, and participated in this virtual visit which was conducted using real time audio/video Vital Signs Date Time Temp Pulse Resp B/P (MAP) Pulse Ox O2 Delivery O2 Flow Rate FiO2 09/25/22 12:00 91 17 99 Nasal Cannula 2.00 09/25/22 11:00 69 18 148/91 (110) 99 Nasal Cannula 2.00 09/25/22 10:00 71 19 137/82 (100) 99 Nasal Cannula 2.00 09/25/22 09:00 68 19 139/86 (103) 96 Nasal Cannula 2.00 09/25/22 08:00 96 Nasal Cannula 2.00 09/25/22 08:00 76 17 118/80 (93) 92 Nasal Cannula 2.00 09/25/22 07:53 36.7 09/25/22 07:41 94 Nasal Cannula 1.00 09/25/22 07:00 65 16 136/78 (97) 96 Nasal Cannula 2.00 09/25/22 07:00 95 09/25/22 06:00 60 16 127/86 (100) 99 Nasal Cannula 2.00 09/25/22 05:00 66 18 130/77 (94) 98 Nasal Cannula 2.00 09/25/22 04:00 66 18 122/80 (94) 99 Nasal Cannula 2.00 09/25/22 04:00 96 Nasal Cannula 2.00 09/25/22 03:00 70 16 113/65 (81) 98 Nasal Cannula 2.00 09/25/22 02:00 68 23 128/69 (88) 99 Nasal Cannula 2.00 09/25/22 01:00 73 19 115/74 (88) 98 Nasal Cannula 2.00 09/25/22 01:00 71 09/25/22 00:58 Nasal Cannula 2.00 09/25/22 00:00 71 20 123/78 (93) 97 Room Air 09/25/22 00:00 36.6 09/24/22 23:59 96 Nasal Cannula 2.00 09/24/22 23:00 70 19 104/61 (75) 96 Room Air 09/24/22 22:00 70 35 111/67 (82) 94 Room Air 09/24/22 21:00 73 20 110/59 (76) 96 Room Air 09/24/22 20:00 36.9 09/24/22 20:00 77 16 105/63 (77) 97 Room Air 09/24/22 20:00 96 Nasal Cannula 2.00 09/24/22 19:00 70 14 107/62 (77) 97 Room Air 09/24/22 19:00 70 09/24/22 18:54 Room Air 09/24/22 18:00 71 21 109/68 (82) 95 Nasal Cannula 2.00 09/24/22 17:00 75 23 96/63 (74) 96 Nasal Cannula 2.00 09/24/22 16:20 36.8 09/24/22 16:00 88 35 92/61 (71) 97 Nasal Cannula 2.00 09/24/22 16:00 96 Nasal Cannula 2.00 09/24/22 15:00 75 16 99/60 (73) 95 Nasal Cannula 2.00 09/24/22 14:00 77 15 82/53 (63) 95 Nasal Cannula 2.00 09/24/22 13:46 80 I & O 09/25/22 06:59 Intake Total 2030 ml Output Total 1450 ml Balance 580 ml Height & Weight Height: '" Weight: lbs. oz. kg; 21.16 BMI Method: General Appearance: No Apparent Distress, WD/WN HEENT: PERRL/EOMI; No Photophobia Neck: Non Tender, Supple Respiratory: No Accessory Muscle Use, No Respiratory Distress, Other (course br eath sounds, improved from yesterday) Cardiovascular: Regular Rate, Rhythm, No Murmur, Normal Peripheral Pulses Capillary Refill: Less Than 3 Seconds Peripheral Pulses: 2+ Dorsalis Pedis (R), 2+ Left Dors-Pedis (L), 2+ Radial Pulses (R), 2+ Radial Pulses (L) Gastrointestinal: non tender, soft Extremity: Non Tender, No Calf Tenderness, No Pedal Edema Neurologic/Psychiatric: Alert, Oriented x3, Normal Mood/Affect Skin: Normal Color, Warm/Dry Lymphatic: No Adenopathy Results Lab Laboratory Tests 09/23/22 19:24 09/24/22 05:22 09/24/22 11:41 09/25/22 04:27 Assessment/Plan Assessment/Plan 1 LINO SALDIVAR MD Sep 25, 2022 13:07
[2022-09-25] MEDS ORDERED: diphenhydrAMINE 50 MG/ML INJ (BENADRYL) IV PRN (14:15)
[2022-09-25] MEDS ORDERED: RT-ALBUTEROL SULF 2.5 MG/3 ML PRE-MIX VIAL IH PRN (14:15)
[2022-09-25] MEDS ORDERED: EPINEPHrine INJECTION 1 MG/ML AMP IM PRN (14:15)
[2022-09-25] MEDS ORDERED: HYDROCORTISONE 100 MG/2 ML (Solu-CORTEF) VIAL IV PRN (14:15)
[2022-09-25] MEDS ORDERED: NS IV 500 ML 500 ML IV SCH (14:15)
[2022-09-25 14:30] VITALS: BP 148/91
[2022-09-25] MEDS ORDERED: IRON DEXTRAN INJECTION 25 MG in NS (IVPB) 5.75 ML IV ONE (14:30)
[2022-09-25] MEDS ORDERED: IRON DEXTRAN INJECTION 975 MG in NS (IVPB) 250 ML IV ONE (14:30)
--- NOTE | 2022-09-25 19:58 | Discharge Summary ---
Discharge Summary Hospital Course Problems/Dx: (1) Sepsis Status: Acute (2) Community acquired bilateral lower lobe pneumonia Status: Acute (3) Severe anemia Status: Acute (4) Microcytic anemia Status: Acute (5) Abdominal pain Status: Acute (6) New onset type 2 diabetes mellitus Status: Acute (7) UTI (urinary tract infection) Status: Acute (8) COMFORT (acute kidney injury) Status: Acute (9) Electrolyte abnormality Status: Acute Hospital Course Date of Admission: Sep 23, 2022 at 22:16 Admission Diagnosis : Sepsis due to pneumonia Family Physician/Provider: Juan Barnett Physician Date of Discharge: 09/25/22 Discharge Diagnosis: Sepsis due to pneumonia Hospital Course: Catarina Gonzales is a 47 year old female who was admitted with sepsis due to pneumonia. She was treated with IV antibiotics and improved. Her course was complicated by anemia and she was transfused 2 units PRBC. She was found to be iron deficient. She also was found to have new onset uncontrolled type II diabetes mellitus. She was started on Levemir while inpatient. She left AGAINST MEDICAL ADVICE. She left without any antibiotics or diabetes medications being prescribed. Labs and Pending Lab Test: Laboratory Tests 09/24/22 21:02: Glucometer 159H 09/25/22 04:27: White Blood Count 15.0H, Red Blood Count 4.34, Hemoglobin 8.1L, Hematocrit 29L, Mean Corpuscular Volume 67L, Mean Corpuscular Hemoglobin 19L, Mean Corpuscular Hemoglobin Concent 28L, Red Cell Distribution Width 26.3H, Platelet Count 224, Mean Platelet Volume 9.9, Immature Granulocyte % (Auto) 1, Neutrophils (%) (Auto) 82H, Lymphocytes (%) (Auto) 8L, Monocytes (%) (Auto) 5, Eosinophils (%) (Auto) 5, Basophils (%) (Auto) 0, Neutrophils # (Auto) 12.3H, Lymphocytes # (Auto) 1.2, Monocytes # (Auto) 0.7, Eosinophils # (Auto) 0.7H, Basophils # (Auto) 0.0, Immature Granulocyte # (Auto) 0.1, Sodium Level 137, Potassium Level 3.7, Chloride Level 115H, Carbon Dioxide Level 16L, Anion Gap 6, Blood Urea Nitrogen 7, Creatinine 0.76, Estimat Glomerular Filtration Rate 97, BUN/Creatinine Ratio 9, Glucose Level 177H, Calcium Level 7.8L, Corrected Calcium 8.8, Phosphorus Level 1.6L, Magnesium Level 1.7, Total Bilirubin 0.8, Aspartate Amino Transf (AST/SGOT) 27, Alanine Aminotransferase (ALT/SGPT) 18, Alkaline Phosphatase 129, Total Protein 6.1L, Albumin 2.7L 09/25/22 11:28: Glucometer 146H Microbiology 09/23/22 Blood Culture - Preliminary, Resulted No growth 09/23/22 Urine Culture - Final, Complete Gram Pos Mixed Bacterial Breanna Home Meds Active No Active Prescriptions or Reported Medications Assessment/Pt Instructions Left AGAINST MEDICAL ADVICE Discharge Planning: <30 minutes discharge planning Discharge Physical Examination Vital Signs Vital Signs Date Time Temp Pulse Resp B/P (MAP) Pulse Ox O2 Delivery O2 Flow Rate FiO2 09/25/22 14:30 36.2 69 20 148/91 100 Nasal Cannula 2.00 09/23/22 23:54 21 General Appearance: No Apparent Distress, WD/WN Respiratory: No Respiratory Distress, Crackles Cardiovascular: Regular Rate, Rhythm, No Murmur Gastrointestinal: Normal Bowel Sounds, Soft Extremity: Normal Inspection, No Pedal Edema Neurologic/Psychiatric: Alert, Normal Mood/Affect Allergies: Coded Allergies: No Known Drug Allergies (Unverified , 09/23/22) Discharge Summary Date of Admission Sep 23, 2022 at 22:16 Date of Discharge Sep 25, 2022 at 14:40 Discharge Date: Sep 25, 2022 Discharge Time: 14:40 Admission Diagnosis Sepsis due to pneumonia Discharge Diagnosis Sepsis due to pneumonia (1) Sepsis Status: Acute (2) Community acquired bilateral lower lobe pneumonia Status: Acute (3) Severe anemia Status: Acute (4) Microcytic anemia Status: Acute (5) Abdominal pain Status: Acute (6) New onset type 2 diabetes mellitus Status: Acute (7) UTI (urinary tract infection) Status: Acute (8) COMFORT (acute kidney injury) Status: Acute (9) Electrolyte abnormality Status: Acute MOIRA NEWSOME MD Sep 25, 2022 19:58
[2022-09-25] MEDS ORDERED: DOXYCYCLINE 100 MG (VIBRAMYCIN) TABLET PO SCH (21:00)
== END 2022-09-25 14:40 | disposition left against medical advice (07) | DRG 871 ==
LOC: ER 18:13 → ICU 22:16
PROVIDERS: ADMIT Internal Medicine; ATTEND Internal Medicine
DX: A41.9 Sepsis, unspecified organism (principal); J18.9 Pneumonia, unspecified organism; N39.0 Urinary tract infection, site not specified; N17.9 Acute kidney failure, unspecified; E11.65 Type 2 diabetes mellitus with hyperglycemia; D64.9 Anemia, unspecified; I95.9 Hypotension, unspecified; R09.02 Hypoxemia; E87.8 Other disorders of electrolyte and fluid balance, not elsewhere classified; Z20.822 Contact with and (suspected) exposure to COVID-19
CPT/HCPCS: 36415; 71045; 74177; 76705; 80053; 81000; 82010; 82607; 82728; 82805; 82947; 83036; 83540; 83550; 83605; 83615; 83735; 84100; 84145; 84484; 85007; 85014; 85018; 85025; 85027; 85045; 85055; 85379; 85610; 85652; 85730; 86850; 86900; 86901; 86920; 87040; 87088; 87389; 87636; 93005; 94640; 94664